=== PATIENT | female | born 2005 | race Caucasian/White ===

== ENCOUNTER 2025-06-27 10:15 | Outpatient (AMBR) | payer MEDICAID, SELFPAY ==
--- NOTE | 2025-06-27 13:36 | LACNOTE_ITS ---
Assessment Alternative Milk Expression Alternative Milk Expression Alternative Method Used: Yes Method Used: Pumping Alternative Method Comment: mom still pumping about every 2-3 hours including at night. getting a good amount of milk Alternative Method Used Reason: Poor Feeding Alternative Method Produced Milk / Colostrum: Yes Production Amount: 40 Production ounces or mls: ounces Pump Used: Electric Pumping Frequency Per Day: 8 (day) LAC Assessment Breast Feeding Assessment Date of : 05/[birth year]/25 Current Age of baby: 41 (days) Weight: 2381.36 g Current weight of baby: 3685.438 g # of Stool voids in last 24 hrs: 3 Stool Size: Medium Color of Stools: yellow brown # of Urine voids in last 24 hrs: 5 Color of Urine: yellow Breast Feeding Ability: Poor and No Attempted Complications: Weight loss and Difficult Latch Crowell Complications Comment: baby was 36 and 1 day, small and so meteorologist in charge said don't breast feed as it would tax baby too much and they didn't want him to lose weight. mom was not put on a pump or shown how to hand experess to preserve her milk supply. mom at this time has only been pumping 2 x in a 24 hour period. she state only getting 1-2 oz of milk per pumping cycle. Activity Level: Sleepy Muscle Tone: Floppy Effective Crowell Suck: Yes Crowell Swallow: Observed Crowell Jaw: With In Norml Limits Crowell Lip Seal: Poor and Weak Suction Feeding Posistion: Football Additional Latch or Posistion Assistance Needed: Minimal Breast Feeding Comment: baby did not feed well, he had actually had a bottle feed around 130 pm so was not very hungry. used a nipple shield and SNS to assist in getting baby interested. Explained to parents how to use the devices and they feel comfortable with them. Breast Feeding Comment: Issued mom a hospital grade electric pump as she does not feel hers is adequate enough LAC Intervention Interventions Other Tools: used SNS and nipple shield to get baby to latch. Parents really want baby to do strictly breast milk as the formula baby has not been tolerating well. they have already changed formula twice. explained that changing it can also make baby have bad tummy issues. Nipple Shield Size: Small Techniques Discussed: Latch, Position, Pumping and Hand Expression Discharge Follow Up Appointment Date and Time: June 03, 2025 LAC Latch Score LATCH Score Latch: Repeat Attempt to Hold Nipple Audible Swallow: Few, With Stimulation Nipple Type: Everted After Stimulation Comfort: Soft, Nontender Hold: Minimal Assistance Needed Total Score: 7 LAC Crowell Oral Assessment Oral Assessment Prenulum Level: Normal Lip: Tight Upper Lip Palate: Normal / Intact Dental Referral made: No OP DC Assessment Discharge Follow Up Appointment Date and Time: June 03, 2025 Visit Complete?: Yes
== END 2025-07-01 23:59 | disposition home or self-care (01) ==
LOC: HODLAC 10:15
DX: Z39.1 Encounter for care and examination of lactating mother (principal)

== ENCOUNTER 2025-07-26 13:06 | Outpatient (AMB) | payer MEDICAID, SELFPAY ==
[2025-07-26 13:16] VITALS: BP 130/88; PULSE 96; RESP 18; TEMP 36.6; O2SAT 98; BMI 38.2
--- NOTE | 2025-07-26 13:16 | AMBOBPPN_ITS ---
Vital Signs 07/26/25 13:16 Height 1.57 m Height Method Stated Weight 94.858 kg Weight Measurement Method Standing Scale BMI 38.2 BP 130/88 H Blood Pressure Source Automatic Cuff Blood Pressure Location Left Upper Arm Position Sitting Respiration 18 Pulse 96 Pulse Source Monitor Temp 97.8 F Temp Source Oral Pulse Oximetry (%) 98 Oxygen Delivery Method Room Air Allergies/Home Meds Allergies & Medications Allergies acetaminophen (From Tylenol) Allergy (Verified 07/26/25 13:17) aspirin Allergy (Verified 07/26/25 13:17) kiwi Allergy (Verified 07/26/25 13:17) Medication Reconciliation ibuprofen 400 mg tablet 800 mg (2 x 400 mg) PO Q8HR PRN Pain Scale 4-6 (Moderate #30 tabs 06/22/25 [Rx Confirmed 07/26/25] measles,mumps,rubella vacc(PF) 1,000-12,[id number]/0.5 mL subcut (M-M-R II (PF)) 0.5 ml SCi X1 PRN if non-immune or equivocal #1 ea 06/22/25 [Rx Confirmed 07/26/25] norethindrone (contraceptive) 0.35 mg tablet (Vivian-BE) 0.35 mg PO QDAY #84 tabs 07/26/25 [Rx] Intake Visit Data Collection New Patient or Established: Established Patient (seen at [facility] within 3 years) Reason for Visit:: Seen by Clinical Staff ONLY (RN/MA): No Inside Phone Sales Required: No Do You Feel Safe at Home: Yes Authorities Contacted: N/A PCP or OBGYN visit in last 3 months: Yes Hx Now: No Are you currently on any form of Control: No Pain Present Currently: No Pain Scale Used: Benavides-Gilbert/Numerical Pain scale:: 0 Smoking Status Smoking Status: Former smoker Immunizations Flu Vaccine in the Last 12 Months: Yes Flu Vaccine Exclusion Criteria: Already 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: Past Medical History Past Medical History: No Hx Neurological Disorders, No Hx Cardiac Disorders, No Hx Cancer, No Hx Blood Disorders, No Hx Gastrointestinal Disorders, No Hx Renal Disease, No Hx Diabetes Mellitus Type 1 and No Hx Diabetes Mellitus Type 2 Questionnaires Covid-19 Vaccine Questionnaire Has patient been vacinated for Covid-19 Have you been vacinated for Covid-19: Yes Social History Living Situation History Lives With: Family Housing: House Tobacco History Smoking Status: Former smoker Second Hand Smoke Exposure: No Alcohol History Alcohol Intake: Former Alcohol Intake Frequency: holidays/special occasions only Domestic Abuse History Do You Feel Safe at Home: Yes EPDS - PP Depression Screening [place] Pospartum Depression Screen I have been able to laugh and see the funny side of things: (0) As much as I always could I have looked forward with enjoyment to things: (0) As much as I ever did I have blamed myself unnecessarily when things went wrong: (0) No, never I have been anxious or worried for no good reason: (0) No, not at all I have felt scared or panicky for no very good reason: (0) No, not at all Things have been getting on top of me: (0) No, I have been coping as well as ever I have been so unhappy that I have had difficulty sleeping: (0) No, not at all I have felt sad or miserable: (0) No, not at all I have been so unhappy that I have been crying: (0) No, never The thought of harming myself has occurred to me: (0) Never EPDS completed yes Care Comments: delivered a 9.11 lbs baby and will order a 2 hour GTT to be done at 6 weeks HPI Interval History: Patient Name: CHETAN BUCIO : 2005 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 Procedure Date of procedure: 06/20/25 Procedure Performed: Primary emergency section Indication: intolerance to labor Large for Gestational Age Oligohydramnios Pre-Op diagnosis: see indication Post-Op diagnosis: same thick pea soup meconium Anesthesia type: Spinal Patient delivered a LGA baby Was or delivery considered high risk: Yes Delivery type: Was labor induced: yes and medically indicated Gestational age at delivery (weeks): 41 Delivery date: 06/20/25 Delivery complications: No Delivery complications comment: patient had no care Is patient infant: Yes Is patient sexually active: No Contraception planned: Vivian Be Review of Systems Review of Systems ROS limited to current OPERATORS TEACHER complaints: Yes Narrative Review of Systems: Patient has no/ complaints Headache no Blurry vision no Chest pain no Palpitations no Shortness of breath no Nausea or vomiting or constipation no Back pain no Dysuria no Dizziness no calf pain no She is voiding spontaneously after catheter removal yes Passing flatus yes Lochia minimal yes Exam Narrative Physical exam: alert x3 chest clear CVS RRR NO thyromegaly Uterus is not palpable Just below the umbilicus Bowel sounds present Abdomen soft no hernias noted/no CVAT Incision CDI No drainage Appropriately tender No calf tenderness Edema mild Office Procedures OBC Clinic LOC & Office Proc's Nursing/Assessment Patient Status: Established Patient OB Clinic Nursing Assessment: Medication Reconciliation, Update PMH in EMR and Vital Signs OB Clinic Coordination of Care: Complex Care and Chronic Disease 1-5, Consent,records obtained, informed consent, Education Simp Pt/Fam, 1 Ins Authorization, Lab and Imaging orders, Results/Orders obtained and Staff clarify orders Established Patient Charge Established Patient Point Assignment: 120 Established Patient Point Charge: EP Level 4 (120-155) Assessment & Plan Care Reviewed delivery summary and any complications: Yes Perineal / incision healing noted: Yes Screened for depression: No Discussed family planning & contraception: Yes Contraception planned: Vivian Be Counseling on safe resumption of sexual activity: Yes Discussed and concerns (describe), provided support: Yes Counseled on good nutrition, hydration, and self care: Yes Reviewed vaccine status: Yes Vaccines due: Tdap Chronic & current problems reconciled on problem list: Yes Additional follow up plans: paatient needs to get a pap smear and find a Primary care / can go to [facility] / care discussed; questions answered: vaccines Additional counseling & anticipatory guidance provided: follow up on 2 hour GTT counselled n R/B and options of T dap
== END 2025-07-26 14:00 | disposition home or self-care (01) ==
LOC: HODSOBC 13:06
PROVIDERS: Supervising Provider Obstetrics & Gynecology; Visit Provider Obstetrics & Gynecology
DX: Z39.2 Encounter for routine postpartum follow-up (principal); Z39.1 Encounter for care and examination of lactating mother; Z87.891 Personal history of nicotine dependence; Z88.6 Allergy status to analgesic agent; Z91.018 Allergy to other foods
CPT/HCPCS: 90715; 99214; G0463

== ENCOUNTER 2025-08-22 06:55 | Emergency (ER) | payer SELFPAY ==
[2025-08-22 06:56] VITALS: BMI 36.9
[2025-08-22 07:10] VITALS: BP 145/85; PULSE 96; RESP 18; TEMP 36.6; O2SAT 98
--- NOTE | 2025-08-22 07:18 | XR_ITS ---
AP and lateral views of the lumbosacral spine on 08/22/2025 at 8:05 a.m. CLINICAL HISTORY: Low back pain, patient is status post section 1 week ago. FINDINGS: The bowel gas pattern throughout the abdomen is normal. No organomegaly is identified anywhere the lower dorsal and lumbosacral spine show normal alignment, no localized abnormalities are seen involving the vertebra. The posterior lower lungs are clear with no evidence of pleural fluid. IMPRESSION: 1. AP and lateral views of the lumbosacral spine are within normal limits.
--- NOTE | 2025-08-22 07:19 | PD.EDBACK ---
ED Back Injury Pain RME/HPI General Chief Complaint: Back Pain/Injury Stated Complaint: LOWER BACK PAIN RADIATES TO FRONT Time Seen by Provider: 08/22/25 07:04 Source: patient Arrival date/time: 08/22/25 06:55 20-year-old female with no known medical history presents to the emergency room with a chief complaint of lumbar back pain x 2 days Mode of arrival: ambulatory Limitations: no limitations Related Data Previous Rx's ?Medication ?Instructions ?Recorded ibuprofen 400 mg tablet 800 mg (2 x 400 mg) PO Q8HR PRN 06/22/25 Pain Scale 4-6 (Moderate #30 tabs measles,mumps,rubella vacc(PF) 0.5 ml SCi X1 PRN if non-immune or 06/22/25 1,000-12,[id number]/0.5 mL subcut equivocal #1 ea (M-M-R II (PF)) norethindrone (contraceptive) 0.35 0.35 mg PO QDAY #84 tabs 07/26/25 mg tablet (Vivian-BE) cyclobenzaprine 10 mg tablet 10 mg PO TID #14 tabs 08/22/25 ibuprofen 800 mg tablet 800 mg PO Q8H #30 tabs 08/22/25 Allergies Allergy/AdvReac Type Severity Reaction Status Date / Time acetaminophen (From Tylenol) Allergy Verified 07/26/25 13:17 aspirin Allergy Verified 07/26/25 13:17 kiwi Allergy Verified 07/26/25 13:17 Review of Systems Review of Systems Systems Reviewed: All systems reviewed, normal except as documented Constitutional Constitutional: Reports system reviewed and no additional complaints, except as documented, Denies fatigue, Denies fever(s), Denies headache(s) and Denies weakness Eyes Eyes: Reports system reviewed and no additional complaints, except as documented, Denies blurry vision and Denies change in vision ENT Ears, Nose, Mouth, and Throat: Reports system reviewed and no additional complaints, except as documented, Denies otalgia, Denies headache(s), Denies nasal congestion, Denies throat swelling and Denies vertigo Cardiovascular Cardiovascular: Reports system reviewed and no additional complaints, except as documented, Denies chest pain, Denies dyspnea and Denies dyspnea on exertion Respiratory Respiratory: Reports system reviewed and no additional complaints, except as documented, Denies chest congestion, Denies cough, Denies dyspnea, Denies dyspnea on exertion and Denies wheezing Gastrointestinal Gastrointestinal: Reports system reviewed and no additional complaints, except as documented, Denies abdominal pain, Denies cramping, Denies nausea and Denies vomiting Genitourinary Genitourinary: Reports system reviewed and no additional complaints, except as documented Musculoskeletal Musculoskeletal: Reports system reviewed and no additional complaints, except as documented and Reports back pain Integumentary/Breasts Skin/Breast: Reports system reviewed and no additional complaints, except as documented and Denies wounds Neurologic Neurologic: Reports system reviewed and no additional complaints, except as documented, Denies confusion, Denies headache(s), Denies lack of coordination, Denies vertigo and Denies weakness Psychiatric Psychiatric: Reports system reviewed and no additional complaints, except as documented, Denies anxiety, Denies confusion, Denies depression, Denies paranoia, Denies suicidal ideation and Denies tactile hallucinations Endocrine Endocrine: Reports system reviewed and no additional complaints, except as documented and Denies fatigue Hematologic/Lymphatic Hematologic/Lymphatic: Reports system reviewed and no additional complaints, except as documented and Denies lymphadenopathy Allergic/Immunologic Allergic/Immunologic: Reports system reviewed and no additional complaints, except as documented, Denies throat swelling, Denies urticaria and Denies wheezing Past Medical History Past Medical History NEUROLOGIC: Negative Neurological Disorders or Seizures CARDIAC: Negative Cardiac Disorders or Congestive Heart Failure RESPIRATORY: Positive Asthma; Negative Chronic Obstructive Pulmonary Disease (COPD) GASTROINTESTINAL: Negative Gastrointestinal Disorders GENITOURINARY: Negative Genitourinary Disorders or Renal Disease REPRODUCTIVE: Positive Previous Pregnancies (x2 1 sab) MUSCULOSKELETAL: Negative Musculoskeletal Disorders ENDOCRINE: Negative Endocrine Disorders, Diabetes Mellitus Type 1 or Diabetes Mellitus Type 2 HEMATOLOGIC: Negative Blood Disorders PSYCHO/SOCIAL: Positive Depression (no meds), Anxiety (no meds) and Post Traumatic Stress Disorder OTHER HISTORY: Negative Autoimmune Disease, Blood Transfusions, Blood Transfusion Reaction, Anesthesia Reactions, MRSA or Cancer Family History FAMILY HISTORY: Positive Family Cardiac Disorders (heart issues, abnormal heart rate); Negative Family Psychiatric Problems, Family Respiratory Disorders, Family Gastrointestinal Problems, Family Cancer, Family Surgery or Family Anesthesia Reaction Surgical History SURGICAL: Negative Endocrine Surgery, Ear Surgery, Tympanostomy Tube, Abdominal Surgery, Nephrectomy, Joint Replacement, Neurologic Surgery, Lumpectomy or Section Social History SMOKING STATUS: Never smoker SECOND HAND EXPOSURE: No ED Exam General Limitations: Present no limitations General appearance: Present alert and in no apparent distress Head Head exam: Present atraumatic Eye Eye exam: Present normal appearance, PERRL and EOMI ENT ENT exam: Present normal exam, normal oropharynx and mucous membranes moist Neck Neck exam: Present normal inspection, full ROM and trachea midline Chest Chest inspection: Present normal inspection and symmetric chest wall rise Respiratory Respiratory exam: Present normal lung sounds bilaterally Cardiovascular Cardiovascular exam: Present regular rate, normal rhythm and normal heart sounds Abdominal Exam Abdominal exam: Present soft and normal bowel sounds Extremities Exam Extremities exam: Present normal inspection and full ROM Back Exam Back exam: Present normal inspection, full ROM and vertebral tenderness; Absent CVA tenderness (R) or CVA tenderness (L) Neurological Exam Neurological exam: Present alert, oriented X3 and CN II-XII intact Expanded Neurological Exam Spinal cord function: Absent saddle anesthesia Psychiatric Psychiatric exam: Present normal affect and normal mood Skin Skin exam: Present warm, dry, intact and normal color Course Quality Measures none Orders Category Date Time Status XR lumbar spine 2-3V Stat Exams 08/22/25 07:18 Completed Ketorolac Inj [Toradol Inj] Med 08/22/25 07:19 Discontinued 30 mg IM X1 ONE Vital Signs Vital signs: Vital Signs Temperature 97.9 F 08/22/25 07:10 Pulse Rate 96 08/22/25 07:10 Respiratory Rate 18 08/22/25 07:10 Blood Pressure 145/85 H 08/22/25 07:10 Pulse Oximetry (%) 98 08/22/25 07:10 Oxygen Delivery Method Room Air 08/22/25 07:10 Back Pain / Injury MDM Narrative MDM Narrative:: 20-year-old female with no known medical history presents to the emergency room with a chief complaint of lumbar back pain x 2 days Patient is hemodynamically stable and in no apparent distress. Patient is afebrile nontachycardic nontachypneic Physical physical examination shows lumbar back tenderness with palpation. There is no CVA tenderness. The patient is ambulating. Patient denies any trauma but states she recently had a and has a baby at home which she lifts frequently. The patient denies any saddle anesthesia. There is no loss of bowel or bladder function. There is no numbness to the lower extremities X-ray of the lumbar spine was completed and showed no acute findings Patient was discharged and educated to follow-up with primary care provider in the next 24 to 48 hours and return to the emergency room for any evidence of worsening signs or symptoms Patient data External records reviewed:: [facility] previous records Clinical information provided by:: patient Social determinants that could affect healthcare access:: none Patient has the following chronic illnesses:: No chronic illness How is presenting disease/condition affected by chronic disease/condition?: no chronic disease Evaluation data The following diagnostics were reviewed and interpreted by me:: lab results and radiology exam(s) Lab and/or radiology exams considered but not ordered:: Labs radiology exams considered and ordered Interpretation Summary: X-ray lumbar spine-FINDINGS: The bowel gas pattern throughout the abdomen is normal. No organomegaly is identified anywhere the lower dorsal and lumbosacral spine show normal alignment, no localized abnormalities are seen involving the vertebra. The posterior lower lungs are clear with no evidence of pleural fluid. IMPRESSION: 1. AP and lateral views of the lumbosacral spine are within normal limits. Medications / Prescriptions Medications or Prescriptions considered but not ordered:: Medication given Medication administrations:: Medication Administration History Discontinued Medications Ketorolac Tromethamine (Ketorolac Inj 60 Mg/2 Ml Vial) 30 mg IM X1 ONE Stop: 08/22/25 07:20 Last Admin: 08/22/25 07:43 Dose: 30 mg Documented By: ARF Medication given Consultations Consultation(s) initiated? (list below): No Diagnosis Differential diagnosis back pain/injury: strain of lumbar region, thoracic back pain and discitis Most likely diagnosis given after review of the tests above:: Strain of lumbar region Admission Indicated Admission indicated?: not indicated Admission Request Was there a request for admission?: No Disposition Plan Disposition Plan: Discharge Discharge Attestation Discharge Attestation: The patient and all family members were given an opportunity to ask questions and understood the discharge instructions. Discharge instructions specifically effects, indications for sooner follow up or return to the emergency department, and the expected course of current diagnosis. Patient condition: Stable Discharge Plan Plan Patient Disposition: HOME (Self Care) Discharge Disposition comment: Stable Prescriptions/Referrals Prescriptions/Med Rec: New ibuprofen 800 mg tablet 800 mg PO Q8H Qty: 30 0RF cyclobenzaprine 10 mg tablet 10 mg PO TID Qty: 14 0RF No Action diphth,pertus(acell),tetanus 2.5-8-5 Lf-mcg-Lf/0.5mL syringe 0.5 ml IM ONCE Qty: 0.5 0RF norethindrone (contraceptive) [Vivian-BE] 0.35 mg tablet 0.35 mg PO QDAY Qty: 84 0RF ibuprofen 400 mg Tablet 800 mg PO Q8HR MDD 8 PRN (Reason: Pain Scale 4-6 (Moderate) Qty: 30 1RF Rx Instructions: patient has been taking Motrin in hospital without a problem M-M-R II (PF) 1,000-12,500 TCID50/0.5 mL Recon Soln 0.5 ml SCi X1 PRN (Reason: if non-immune or equivocal) Qty: 1 0RF Referrals: No Primary/Family,Physician [Primary Care Provider] - In 1 week Problem List Clinical Impression: Strain of lumbar region Patient/Caregiver Discharge Instructions Education Materials: ED Back Sprain/Strain Additional Instructions: Please follow-up with your primary care provider in the next 24 to 48 hours X-rays of your lumbar spine were negative for any acute fracture or dislocation Medication was sent to your pharmacy to help with the muscular and joint pain For any evidence of worsening signs or symptoms return to emergency room immediately Print Language: Georgian Stand Alone Forms: Cristela Award Info., Work/School Release, Patient Portal Info Letter
[2025-08-22] MEDS: KETOROLAC INJ 60 MG/2 ML VIAL 30 MG IM (07:43)
== END 2025-08-22 09:31 | disposition home or self-care (01) ==
PROVIDERS: Emergency Provider Family Medicine
DX: O99.893 Other specified diseases and conditions complicating puerperium (principal); S39.012A Strain of muscle, fascia and tendon of lower back, initial encounter; X58.XXXA Exposure to other specified factors, initial encounter
CPT/HCPCS: 72100; 96372; 99283; J1885